=== PATIENT | female | born 1990 | race Caucasian/White ===

== ENCOUNTER 2023-05-31 23:04 | Emergency (ER) | payer BC, SELFPAY ==
[2023-05-31 23:05] VITALS: BP 115/62; PULSE 62; RESP 18; TEMP 36.8; O2SAT 99; BMI 31.3
--- NOTE | 2023-05-31 23:18 | ED_ITS ---
HPI - Abdominal Pain General: Chief Complaint: Abdominal Pain Stated Complaint: Abdomin pain, vomiting Time Seen by Provider: 05/31/23 23:08 Source: patient Mode of arrival: ambulatory Limitations: no limitations History of Present Illness: Patient is a 32-year-old female who presents to the emergency room with abdominal pain. Patient states abdominal pain started around 5:30 PM this afternoon. States abdominal pain is right upper quadrant and radiates to left upper quadrant. Reports Aggravating factor of laying on left side. past medical history of gastric bypass and cholecystectomy. Reports she has had some vomiting and diarrhea this afternoon as well. Denies fever, chest pain, chills. Denies any other complaints at this time. MD elicited complaint: abdominal pain Associated Symptoms: Reports GI cramping, diarrhea, nausea and vomiting; Denies chills and fever(s) Related Data: Date of Last Menstrual Period: 05/01/23 Review of Systems Const: Denies: fever(s) or chills Eyes: Denies: change in vision ENMT: Denies: throat pain or mouth pain Card: Denies: chest pain or palpitations Resp: Denies: dyspnea or productive cough GI: Reports: abdominal pain, nausea, vomiting, diarrhea and GI cramping : Denies: flank pain or difficulty voiding Musc: Denies: neck pain or back pain Skin/Breast: Denies: rash or pruritus Neuro: Denies: headache(s) or numbness in extremities [facility] Female Reproductive History: Date of last menstrual period: 05/01/23 Physical Exam Const: COMMON NORMALS: patient oriented x3 and alert GENERAL APPEARANCE: cooperative ORIENTATION/CONSCIOUSNESS: Yes awake HENMT: COMMON NORMALS: normocephalic HEAD & SCALP: normocephalic Eye: GENERAL EYE: appearance normal, both eyes and all related structures Neck/C-Spine: COMMON NORMALS: full ROM and no JVD Lymph: LYMPHATIC: no lymphadenopathy noted Chest: CHEST: Yes Symmetrical chest wall rise Resp: COMMON NORMALS: normal respiratory effort and clear to auscultation bilaterally EFFORT & INSPECTION: Yes symmetric chest movement AUSCULTATION: clear to auscultation bilaterally Cardio: COMMON NORMALS: no JVD and S1 normal heart sound present HEART SOUNDS: S1 normal heart sound present GI: COMMON NORMALS: Soft to palpation INSPECTION: Yes normal to inspection AUSCULTATION: Yes normoactive bowel sounds PALPATION: Yes Soft to palpation and Yes Tenderness to palpation present (GI) RECTAL EXAM: deferred : COMMON NORMALS: Yes no CVA tenderness BLADDER/KIDNEY EXAM: Yes no CVA tenderness Back/Pelvis: COMMON NORMALS: no CVA tenderness Extremity: COMMON NORMALS: normal to inspection Neuro: COMMON NORMALS: patient oriented x3 SENSORIUM/ORIENTATION: Yes alert Course Vital Signs: Vital signs: Vital Signs Temperature 98.3 F 05/31/23 23:05 Pulse Rate 61 06/01/23 03:06 Respiratory Rate 16 06/01/23 02:04 Blood Pressure 105/53 06/01/23 02:04 Pulse Oximetry 98 06/01/23 03:06 Oxygen Delivery Me thod Room Air 05/31/23 23:05 MDM - Abdominal Pain Medical Decision Making Patient presents here with vomiting abdominal pain CT does show small bowel obstruction spoke to surgeon on-call here Dr Boss who recommended patient being transferred to place a bariatric surgery as she has had a history of a Ok-en-Y bypass. Spoke to Renetta Villa I did speak to the surgeon on-call there he states that he is going to touch base with her bariatric surgeon at 6 AM for possible acceptance of also spoke to [facility] along with [facility] who do not be beds at this time I have a call out to [place] as well. Patient is excepted at [facility] by Dr. Bradshaw will transfer there Medical Records I reviewed the patient's medical records. Lab Data I reviewed the patient's lab results. 05/31/23 23:25 05/31/23 23:25 Labs/Radiology: Radiology Impressions Abdomen/Pelvis CT 05/31/23 23:18 IMPRESSION: Distal small bowel obstruction. Surgery consult is recommended. ADDENDUM: 06/01/23 0027 THIS REPORT CONTAINS FINDINGS THAT MAY BE CRITICAL TO PATIENT CARE. The findings were verbally communicated via telephone conference with STEFANIE Peterson by Dr. Desai at 12:24 AM CDT on 06/01/2023. The findings were acknowledged and understood. Laboratory Results WBC 10.12 10^3/uL (3.29-11.43) 05/31/23 23:25 RBC 3.99 10^6/uL (3.85-5.65) 05/31/23 23:25 Hgb 13.00 g/dL (11.27-16.99) 05/31/23 23: Hct 39.0 % (36-47) 05/31/23: MCV 97.7 fl (85-98) 05/31/23 23: MCH 32.6 pg (27-33) 05/31/23: MCHC 33.3 g/dL (30-55) 05/31/23: RDW 11.5 % (12.1-15.1) L 05/31/23: Plt Count 216 10^3/cmm (157-399) 05/31/23: MPV 10.8 fL (7.4-10.4) H 05/31/23: Neut % (Auto) 87.0 % 05/31/23: Lymph % (Auto) 8.6 % 05/31/23: Bennett % (Auto) 3.6 % 05/31/23: Eos % (Auto) 0.2 % 05/31/23: Baso % (Auto) 0.3 % 05/31/23: Neut # (Auto) 8.81 10^3/uL (1.8-7.7) H 05/31/23: Lymph # (Auto) 0.9 10^3/uL (0.8-4.8) 05/31/23: Bennett # (Auto) 0.4 10^3/uL (0.2-0.9) 05/31/23: Eos # (Auto) 0.0 10^3/uL (0.0-0.8) 05/31/23: Baso # (Auto) 0.0 10^3/uL (0.0-0.1) 05/31/23: Nucleated RBC % (auto) 0 % 05/31/23: Nucleated RBCs # 0.0 /100WBC 05/31/23 23: Sodium 137 mmol/L (136-145) 05/31/23: Potassium 3.9 mmol/L (3.5-5.1) 05/31/23: Chloride 102 mmol/L (98-107) 05/31/23 23: Carbon Dioxide 24 mmol/L (22-29) 05/31/23 23:25 Anion Gap 14.9 (5-19) 05/31/23 23:25 BUN 14 mg/dL (6-20) 05/31/23 23: Creatinine 0.6 mg/dL (0.5-0.9) 05/31/23 23:25 GFR Calculation 115.9 mL/min (90-130) 05/31/23 23: Glucose 142 mg/dL (65-115) H 05/31/23 23: Calculated Osmolality 287 mOsm/kg (285-295) 05/31/23 23: Calcium 9.0 mg/dL (8.5-10.5) 05/31/23: Total Bilirubin 0.7 mg/dL (0.15-1.2) 05/31/23 23: AST 20 U/L (0-32) 05/31/23 23:25 ALT 23 U/L (0-33) 05/31/23 23: Alkaline Phosphatase 94 U/L (35-105) 05/31/23 23:25 Total Protein 7.4 g/dL (6.6-8.7) 05/31/23 23:25 Albumin 4.3 g/dL (3.5-5.2) 05/31/23 23:25 Globulin 3.1 g/dL (1.3-4.6) 05/31/23 23:25 Lipase 16 U/L (13-60) 05/31/23 23:25 HCG, Qual Negative (Negative) 05/31/23 23: Urine Color Yellow (Yellow) 05/31/23: Urine Appearance Sl hazy (CLEAR) A 05/31/23: Urine pH 5 (5-7) 05/31/23: Ur Specific [place] 1.030 (1.005-1.030) 05/31/23: Urine Protein Trace (Negative) 05/31/23: Urine Glucose (UA) Norm (Normal) 05/31/23 23: Urine Ketones 2+ (Negative) H 05/31/23 23: Urine Blood 3+ (Negative) H 05/31/23 23: Urine Nitrate Negative (Negative) 05/31/23 23: Urine Bilirubin Neg (Negative) 05/31/23 23:28 Urine Urobilinogen 1 mg/dL (Negative) H 05/31/23 23:28 Ur Leukocyte Esterase Negative (Negative) 05/31/23 23:28 Urine RBC 10-15 /hpf (0-2) H 05/31/23 23:28 Urine WBC 0-4 /hpf (0-5) H 05/31/23 23:28 Ur Squamous Epith Cells 15-25 /hpf (0-5) H 05/31/23 23:28 Amorphous Sediment Not Reportable 05/31/23 23:28 Urine Bacteria 1+ /hpf (NONE) H 05/31/23 23:28 Hyaline Casts 0-4 /lpf H 05/31/23 23:28 Urine Mucus 3+ /hpf 05/31/23 23:28 All radiology interpretation(s) finalized by discharge Discharge Plan Discharge Patient Disposition: Xfer Short-Term Hosp Clinical Impression: Small bowel obstruction Condition: Stable Coding Level of Care Code ED [employer] Work[employer] for Mitali Vela
--- NOTE | 2023-05-31 23:18 | CTR_ITS ---
PROCEDURE INFORMATION: Exam: CT Abdomen And Pelvis With Contrast Exam date and time: 06/01/2023 12:02 AM Age: 32 years old Clinical indication: Abdominal pain; Generalized; Prior surgery; Surgery date: 6+ months; Surgery type: Gb, csection, gastric bypass; Additional info: Abd pain TECHNIQUE: Imaging protocol: Computed tomography of the abdomen and pelvis with contrast. Radiation optimization: All CT scans at this facility use at least one of these dose optimization techniques: automated exposure control; mA and/or kV adjustment per patient size (includes targeted exams where dose is matched to clinical indication); or iterative reconstruction. Contrast material: OMNI 350; Contrast volume: 100 ml; Contrast route: INTRAVENOUS (IV); REPORTING DATA: Count of CT and Cardiac NM exams in prior 12 months: This patient has received 0 known CTs and 0 known cardiac nuclear medicine studies in the 12 months prior to the current study. COMPARISON: No relevant prior studies available. RADIATION DOSE METRICS: Total DLP (mGy-cm): 894.13 FINDINGS: Liver: Normal. No mass. Gallbladder and bile ducts: There are cholecystectomy clips. Pancreas: Normal. No ductal dilation. Spleen: Normal. No splenomegaly. Adrenal glands: Normal. No mass. Kidneys and ureters: Normal. No hydronephrosis. Stomach and bowel: There is evidence of previous gastric bypass surgery. Multiple proximal small bowel loops are dilated up to 3.9 cm in diameter, while the distal small bowel loops are small in diameter. The findings are suggestive of distal small bowel obstruction. Transition point is in the right lower quadrant of the abdomen. There is evidence of previous bowel surgery in the right lower quadrant of the abdomen. Appendix: No evidence of appendicitis. Intraperitoneal space: There is no free air or fluid in the abdomen or pelvis. Vasculature: Unremarkable. No abdominal aortic aneurysm. Lymph nodes: Unremarkable. No enlarged lymph nodes. Urinary bladder: Unremarkable as visualized. Reproductive: Unremarkable as visualized. Bones/joints: There is a 1.1 cm grade 2 anterolisthesis of L5 on S1 without associated spondylolysis. Soft tissues: Unremarkable. CT/CT abdomen pelvis w con* [id number] IMPRESSION: Distal small bowel obstruction. Surgery consult is recommended.
[2023-05-31 23:31] LABS: Basophils % 0.3 %; Eosinophils % 0.2 %; Lymphocytes # 0.9 10^3/uL (0.8-4.8); Lymphocytes % 8.6 %; Mean Corpuscular HGB Conc 33.3 g/dL (30-55); Mean Corpuscular Hemoglobin 32.6 pg (27-33); Mean Corpuscular Volume 97.7 fl (85-98); Mean Platelet Volume 10.8 fL (7.4-10.4); Monocytes # 0.4 10^3/uL (0.2-0.9); Monocytes % 3.6 %; Neutrophils # 8.81 10^3/uL (1.8-7.7); Nucleated Red Blood Cells % 0 %; Platelet Count 216 10^3/cmm (157-399); Red Blood Count 3.99 10^6/uL (3.85-5.65); Red Cell Distribution Width 11.5 % (12.1-15.1); White Blood Count 10.12 10^3/uL (3.29-11.43)
[2023-05-31] MEDS: ondansetron 2 mg/ML SDV 2 mL 4 MG IVP (23:37)
[2023-05-31] MEDS: morphine 4 mg/mL SDV 1 mL IVP (23:37)
[2023-05-31 23:47] LABS: Alanine Aminotransferase 23 U/L (0-33); Albumin Level 4.3 g/dL (3.5-5.2); Alkaline Phosphatase 94 U/L (35-105); Anion Gap 14.9 (5-19); Aspartate Amino Transferase 20 U/L (0-32); Blood Urea Nitrogen 14 mg/dL (6-20); Carbon Dioxide 24 mmol/L (22-29); Chloride 102 mmol/L (98-107); Creatinine Clr Calc Pharmacy 155.6503; Globulin 3.1 g/dL (1.3-4.6); Glomerular Filtration Rate 115.9 mL/min (90-130); Glucose 142 mg/dL (65-115); HCG, Serum Qual Negative (Negative); Lipase 16 U/L (13-60); Osmolality Calculated 287 mOsm/kg (285-295); Potassium 3.9 mmol/L (3.5-5.1); Sodium 137 mmol/L (136-145); Total Bilirubin 0.7 mg/dL (0.15-1.2); Total Protein 7.4 g/dL (6.6-8.7)
[2023-05-31 23:48] LABS: Add Urine Microscopic? YES; Bilirubin Urine Neg (Negative); Blood Urine 3+ (Negative); Glucose Urine UA Norm (Normal); Ketones Urine 2+ (Negative); Leukocyte Esterase Urine Negative (Negative); Nitrate Urine Negative (Negative); Protein Urine Trace (Negative); Urine Appearance SL Hazy (CLEAR); Urine Color Yellow (Yellow); Urobilinogen Urine 1 mg/dL (Negative); pH Urine 5 (5-7)
[2023-05-31 23:49] LABS: Bacteria Urine 1+ /hpf; Mucus Urine 3+ /hpf; Squamous Epithelial Cell Urine 15-25 /hpf (0-5); WBC Urine 0-4 /hpf (0-5)
[2023-05-31 23:50] LABS: Add Urine Culture? No; Hyaline Casts Urine 0-4 /lpf
[2023-06-01] VITALS (7 sets, daily range): BP systolic 105–132; BP diastolic 53–78; PULSE 55–93; RESP 16; O2SAT 97–100
[2023-06-01] MEDS: iohexol 350 mg/mL 500 mL Btl (per mL) IV (00:12)
[2023-06-01] MEDS: morphine 4 mg/mL SDV 1 mL IVP ×2 (02:02→05:20)
[2023-06-01] MEDS: ondansetron 2 mg/ML SDV 2 mL 4 MG IVP (02:03)
[2023-06-01] MEDS: LORazepam 2 mg/mL INJ 1 mL 1 MG IVP (05:19)
--- NOTE | 2023-06-01 05:31 | XRR_ITS ---
PROCEDURE INFORMATION: Exam: XR Chest Exam date and time: 06/01/2023 5:34 AM Age: 32 years old Clinical indication: Device placement; Ng tube; Prior surgery; Surgery date: 6+ months; Surgery type: Gastric bypass 2 years ago TECHNIQUE: Imaging protocol: Radiologic exam of the chest. Views: 1 view. COMPARISON: CT abdomen pelvis w con* [id number] 06/01/2023 12:02 AM FINDINGS: Tubes, catheters and devices: The tip and the side opening of the nasogastric tube project over the cardia of the stomach. Lungs: Unremarkable. No consolidation. Pleural spaces: Unremarkable. No pleural effusion. No pneumothorax. Heart/Mediastinum: Unremarkable. No cardiomegaly. Bones/joints: Unremarkable. XR/XR chest 1V portable [id number] IMPRESSION: 1. No acute cardiopulmonary abnormalities. 2. The tip and the side opening of the nasogastric tube project over the cardia of the stomach.
--- NOTE | 2023-06-01 07:21 | PC.PHAR ---
PT STATES ONLY TAKES ZOFRAN AND TYLENOL PRN-PT STATES NO LONGER TAKING CYMBALTA 30MG BID EXT SHOWS LAST FILLED 12/11/22 30D/S
== END 2023-06-01 08:00 | disposition short-term general hospital (02) ==
PROVIDERS: Emergency Provider Emergency Medicine
DX: K56.609 Unspecified intestinal obstruction, unspecified as to partial versus complete obstruction (principal); Z98.84 Bariatric surgery status
CPT/HCPCS: 36415; 71045; 74177; 80053; 81001; 83690; 84703; 85025; 96374; 96375; 96376; 99285; J2060; J2270; J2405; Q9967